=== PATIENT | male | born 1955 | race Caucasian/White ===

== ENCOUNTER → 2017-08-07 | Outpatient (CLI) | payer MEDICARE | LOC: M RAD 10:55 | DX: Z01.818 Encounter for other preprocedural examination (principal); N18.6 End stage renal disease | CPT/HCPCS: G0365 ==

== ENCOUNTER 2017-09-01 08:41 | Day surgery (SDC) | payer MEDICARE ==
[2017-09-01] MEDS: NS 500 ML IV (09:30)
[2017-09-01 09:38] LABS: POTASSIUM SERUM 3.7 MEQ/L (3.5-5.1)
[2017-09-01] MEDS ORDERED: PROPOFOL 200 MG/20 ML VIAL As Ordered ×2 (09:52→11:05)
[2017-09-01] MEDS ORDERED: LIDOCAINE 2% INJ 100 MG/5 ML SDV (FOR ANES.) As Ordered (09:59)
[2017-09-01] MEDS ORDERED: fentaNYL 100 MCG/2 ML INJECTION (J3010) As Ordered (10:02)
[2017-09-01] MEDS ORDERED: MIDAZOLAM INJ 2 MG/2 ML VIAL (J2250) As Ordered (10:02)
[2017-09-01] MEDS: HEPARIN SOD (PORCINE) 5000 UNITS/ML VIAL As Ordered (11:03)
[2017-09-01 11:44] LABS: BEDSIDE GLUCOSE 190 MG/DL (80-115)
[2017-09-01] MEDS: BUPIVACAINE HCL 0.5% 30 ML VIAL As Ordered (11:46)
[2017-09-01] MEDS: LIDOCAINE 1% SDV INJ 30 ML VIAL As Ordered (11:46)
[2017-09-01] MEDS ORDERED: fentaNYL 100 MCG/2 ML INJECTION (J3010) IV (12:15)
[2017-09-01] MEDS ORDERED: ONDANSETRON 4MG/2ML VIAL (J2405) IV (12:15)
[2017-09-01] MEDS ORDERED: LR 1,000 ML IV (12:15)
[2017-09-01 12:45] LABS: BEDSIDE GLUCOSE 164 MG/DL (80-115)
== END 2017-09-01 13:26 | disposition home or self-care (01) ==
LOC: M SDC 08:41
DX: N18.6 End stage renal disease (principal); I12.0 Hypertensive chronic kidney disease with stage 5 chronic kidney disease or end stage renal disease; I71.4 Abdominal aortic aneurysm, without rupture; E78.00 Pure hypercholesterolemia, unspecified; E10.22 Type 1 diabetes mellitus with diabetic chronic kidney disease; E10.21 Type 1 diabetes mellitus with diabetic nephropathy; F41.9 Anxiety disorder, unspecified; F32.9 Major depressive disorder, single episode, unspecified; F17.211 Nicotine dependence, cigarettes, in remission; I25.10 Atherosclerotic heart disease of native coronary artery without angina pectoris; E78.5 Hyperlipidemia, unspecified; D64.9 Anemia, unspecified; R29.898 Other symptoms and signs involving the musculoskeletal system; R06.83 Snoring; G47.33 Obstructive sleep apnea (adult) (pediatric); R60.0 Localized edema; E66.9 Obesity, unspecified; Z68.32 Body mass index [BMI] 32.0-32.9, adult; Z91.018 Allergy to other foods; Z79.899 Other long term (current) drug therapy; Z79.4 Long term (current) use of insulin; Z79.82 Long term (current) use of aspirin; Z85.828 Personal history of other malignant neoplasm of skin; Z95.5 Presence of coronary angioplasty implant and graft; Z86.718 Personal history of other venous thrombosis and embolism; Z99.2 Dependence on renal dialysis
CPT/HCPCS: 36821

== ENCOUNTER → 2017-09-10 | Outpatient (CLI) | payer MEDICARE ==
[~2017-09-10] MED LIST: ISOVUE-300 61% 50ML VIAL (Q9967) As Ordered; LIDOCAINE 2% MDV 20 ML VIAL As Ordered; MIDAZOLAM INJ 2 MG/2 ML VIAL (J2250) As Ordered; fentaNYL 100 MCG/2 ML INJECTION (J3010) As Ordered
== END | disposition home or self-care (01) ==
LOC: M IRPRO 06:36
DX: T82.590A Other mechanical complication of surgically created arteriovenous fistula, initial encounter (principal); N18.6 End stage renal disease
CPT/HCPCS: 36901

== ENCOUNTER → 2017-09-22 | Outpatient (CLI) | payer MEDICARE ==
[~2017-09-22] MED LIST changes: -MIDAZOLAM INJ 2 MG/2 ML VIAL (J2250) As Ordered; -fentaNYL 100 MCG/2 ML INJECTION (J3010) As Ordered
== END | disposition home or self-care (01) ==
LOC: M IRPRO 07:36
DX: T82.858A Stenosis of other vascular prosthetic devices, implants and grafts, initial encounter (principal); E11.22 Type 2 diabetes mellitus with diabetic chronic kidney disease; I12.0 Hypertensive chronic kidney disease with stage 5 chronic kidney disease or end stage renal disease; N18.6 End stage renal disease; I71.4 Abdominal aortic aneurysm, without rupture; E78.00 Pure hypercholesterolemia, unspecified
CPT/HCPCS: 36902

== ENCOUNTER → 2017-11-12 | Outpatient (CLI) | payer MEDICARE ==
[~2017-11-12] MED LIST changes: -LIDOCAINE 2% MDV 20 ML VIAL As Ordered; +MIDAZOLAM INJ 2 MG/2 ML VIAL (J2250) As Ordered; +fentaNYL 100 MCG/2 ML INJECTION (J3010) As Ordered
== END | disposition home or self-care (01) ==
LOC: M IRPRO 08:14
DX: T82.858A Stenosis of other vascular prosthetic devices, implants and grafts, initial encounter (principal); N18.6 End stage renal disease; I25.10 Atherosclerotic heart disease of native coronary artery without angina pectoris; E11.9 Type 2 diabetes mellitus without complications; I71.4 Abdominal aortic aneurysm, without rupture; I12.0 Hypertensive chronic kidney disease with stage 5 chronic kidney disease or end stage renal disease; E78.00 Pure hypercholesterolemia, unspecified
CPT/HCPCS: 36902

== ENCOUNTER → 2018-12-09 | Outpatient (CLI) | payer MEDICARE ==
[~2018-12-09] MED LIST changes: +AMLO5TAB6 PO; +ASPI-255 PO; +ATOR80TA59 PO; +BUPIVACAINE HCL 0.5% 10 ML VIAL As Ordered ONE; +CARV25TA PO; +CLOP75TA2 PO; +FLOM0.4C39 PO; +INSUH10VL SC; +INSULADS INJ; -ISOVUE-300 61% 50ML VIAL (Q9967) As Ordered; +ISOVUE-300 61% 50ML VIAL (Q9967) As Ordered ONE; +LASI20TA3 PO; +LIDOCAINE 2% MDV 20 ML VIAL As Ordered ONE; +LISI10TA4 PO; -MIDAZOLAM INJ 2 MG/2 ML VIAL (J2250) As Ordered; +MIDAZOLAM INJ 2 MG/2 ML VIAL (J2250) As Ordered ONE; +TRAZ-252 PO; +VENL150C43 PO; +VITA50005 PO; -fentaNYL 100 MCG/2 ML INJECTION (J3010) As Ordered; +fentaNYL 100 MCG/2 ML INJECTION (J3010) As Ordered ONE
--- NOTE | 2019-01-12 13:12 | REPIR ---
DATE OF PROCEDURE: 12/09/2018 ATTENDING SURGEON: Dr. Carlene Andrade LAMINATING PRESS OPERATOR: Francheska Rizzo and Ervin Samuel PREOPERATIVE DIAGNOSIS: End-stage renal disease, dysfunctional left radiocephalic arteriovenous fistula. POSTOPERATIVE DIAGNOSIS: End-stage renal disease, dysfunctional left radiocephalic arteriovenous fistula. PROCEDURE: Left radiocephalic arteriovenous venous fistulogram, retrograde left radial artery angiogram. INDICATION: The patient is a 63-year-old male with end-stage renal disease and a dysfunctional left radiocephalic arteriovenous fistula. The patient undergo a fistulogram with possible angioplasty stent and/or atherectomy. ANESTHESIA: Was local with 2 mL of 2% lidocaine mixed 0.5% Marcaine. FLUORO TIME: 0.1 minutes. CONTRAST: 1 mL. HEPARIN: None. COMPLICATIONS: None. DRAINS: None. SPECIMENS: None. IMPLANTS: None. PROCEDURE: The patient was taken to the angiography suite, placed supine on the angiography room table and then prepped and draped in a standard surgical fashion. Left radiocephalic arteriovenous fistula was cannulated and a fistulogram and retrograde radial artery angiogram were performed showing no intervention required. The catheter was removed and manual compression applied at the puncture site for hemostasis. Dressings were then applied. The patient tolerated the procedure well. All instruments, sponges and needle counts were correct at the end the case. There were no complications. Dr. Andrade was present for directed the entire case. The patient was transferred to the holding area and subsequently discharged in stable condition.
== END ==
LOC: M IRPRO 12-02 09:43
PROVIDERS: ATTEND Surgery Vascular Surgery
DX: N18.6 End stage renal disease (principal); T82.598A Other mechanical complication of other cardiac and vascular devices and implants, initial encounter; X58.XXXA Exposure to other specified factors, initial encounter; Y93.9 Activity, unspecified; Y92.9 Unspecified place or not applicable; Y99.9 Unspecified external cause status
CPT/HCPCS: 36901; C1894; Q9967

== ENCOUNTER 2022-08-31 18:00 | Emergency (ER) | payer MEDICARE ==
[~2022-08-31] VITALS: Ht 175.3 cm; Wt 104.5 kg
[~2022-08-31 18:00] MED LIST changes: +AMLO1TAB24 PO; -AMLO5TAB6 PO; -BUPIVACAINE HCL 0.5% 10 ML VIAL As Ordered ONE; -ISOVUE-300 61% 50ML VIAL (Q9967) As Ordered ONE; -LIDOCAINE 2% MDV 20 ML VIAL As Ordered ONE; +LISI10TA22 PO; -LISI10TA4 PO; -MIDAZOLAM INJ 2 MG/2 ML VIAL (J2250) As Ordered ONE; -fentaNYL 100 MCG/2 ML INJECTION (J3010) As Ordered ONE
[2022-08-31] MEDS ORDERED: BENZONATATE 100MG CAPSULE PO ONE (18:40)
[2022-08-31 18:49] LABS: BASO % 0.5 % (0.0-1.0); EOS # 0.2 10^3/uL (0.0-0.5); EOS % 1.9 % (0.0-3.0); HEMATOCRIT 29.9 % (42.0-52.0); HEMOGLOBIN 9.5 g/dl (13.5-17.5); LYMPH # 0.5 10^3/uL (1.5-5.0); LYMPH % 5.8 % (24.0-44.0); MEAN CORPUSCULAR HEMOGLOBIN 29.5 pg (27.0-33.0); MEAN CORPUSCULAR HGB CONC 31.8 g/dl (32.0-36.5); MEAN CORPUSCULAR VOLUME 92.9 fl (80.0-96.0); MONO # 0.9 10^3/uL (0.0-0.8); MONO % 11.1 % (2.0-8.0); NEUTROPHILS # 6.5 10^3/uL (1.5-8.5); NEUTROPHILS % 80.5 % (36.0-66.0); PLATELET COUNT, AUTOMATED 269 10^3/uL (150-450); RED BLOOD COUNT 3.22 10^6/uL (4.30-6.10); WHITE BLOOD COUNT 8.1 10^3/uL (4.0-10.0)
[2022-08-31 19:14] LABS: BILIRUBIN,DIRECT 0.2 MG/DL (<0.4); BILIRUBIN,TOTAL 0.4 MG/DL (0.3-1.2); CALCIUM LEVEL 8.8 MG/DL (8.3-10.6); CREATININE FOR GFR 6.63 MG/DL (0.70-1.30); GLOMERULAR FILTRATION RATE 8.9 (>49); POTASSIUM SERUM 3.9 MMOL/L (3.5-5.1); TOTAL PROTEIN 6.6 G/DL (5.7-8.2)
[2022-08-31] MEDS ORDERED: ONDA4TAB6 PO (19:59)
[2022-08-31 21:45] VITALS: BP 147/78
== END 2022-08-31 22:26 | disposition home or self-care (01) ==
LOC: EDBD 18:00 → M ED 18:44
DX: U07.1 COVID-19 (principal); E11.9 Type 2 diabetes mellitus without complications; I25.10 Atherosclerotic heart disease of native coronary artery without angina pectoris; I10 Essential (primary) hypertension; G47.33 Obstructive sleep apnea (adult) (pediatric); E78.5 Hyperlipidemia, unspecified; F03.90 Unspecified dementia, unspecified severity, without behavioral disturbance, psychotic disturbance, mood disturbance, and anxiety; N18.6 End stage renal disease; Z99.2 Dependence on renal dialysis; Z83.3 Family history of diabetes mellitus; Z82.49 Family history of ischemic heart disease and other diseases of the circulatory system; Z79.82 Long term (current) use of aspirin; Z79.4 Long term (current) use of insulin; Z79.899 Other long term (current) drug therapy; Z91.018 Allergy to other foods

== ENCOUNTER 2022-09-08 20:44 | Inpatient (IN) | payer MEDICARE ==
[~2022-09-08] VITALS: Ht 175.3 cm; Wt 105.1 kg
[~2022-09-08 20:44] MED LIST changes: +ONDA4TAB6 PO
[2022-09-08 22:00] VITALS: BP 185/101
[2022-09-08] MEDS ORDERED: CARVedilol 12.5 MG TAB PO ONE (22:10)
[2022-09-08] MEDS ORDERED: ALBUTEROL SULFATE 2.5MG/0.5ML INH NEB SOLN NEB PRN (22:10)
[2022-09-08] MEDS ORDERED: GLUCOSE 4GM CHEW TABLET PO PRN (22:10)
[2022-09-08] MEDS ORDERED: DEXTROSE 50% 50ML SYRINGE IV PRN (22:10)
[2022-09-08] MEDS ORDERED: GLUCAGON INJ 1MG VIAL SC PRN (22:10)
[2022-09-08] MEDS ORDERED: ACETAMINOPHEN TAB 650MG DOSE (2X325MG) PO PRN (22:10)
[2022-09-08 22:15] VITALS: BP 181/109
[2022-09-08 22:20] VITALS: BP 152/96
[2022-09-08] MEDS: INSULIN LISPRO (NovoLOG) PER UNIT SC SCH (22:45)
[2022-09-08 23:15] VITALS: BP 178/103
[2022-09-09] VITALS: BP 157/94
[2022-09-09 00:18] LABS: CALCIUM LEVEL 8.6 MG/DL (8.3-10.6); CREATININE FOR GFR 7.09 MG/DL (0.70-1.30); GLOMERULAR FILTRATION RATE 8.2 (>49); MAGNESIUM LEVEL 1.9 MG/DL (1.8-2.4); PHOSPHORUS LEVEL 3.7 MG/DL (2.4-5.1); POTASSIUM SERUM 3.8 MMOL/L (3.5-5.1)
[2022-09-09] MEDS ORDERED: CARV12.5 PO (02:26)
[2022-09-09] MEDS ORDERED: FLON1SPR ×2 (02:26→07:01)
[2022-09-09] MEDS ORDERED: ALBU8.5H INH (02:26)
[2022-09-09] MEDS ORDERED: TRAZ-257 PO (02:26)
[2022-09-09] MEDS ORDERED: TRES100I SC (02:26)
[2022-09-09] MEDS ORDERED: ROPI0.253 PO (02:26)
[2022-09-09] MEDS ORDERED: FLUO40CA PO (02:26)
[2022-09-09] MEDS ORDERED: CEFU1TAB20 PO (02:26)
[2022-09-09] MEDS ORDERED: VALS1TAB67 PO (02:26)
[2022-09-09] MEDS: IPRATROPIUM 0.5MG/ALBUTEROL 2.5MG INH SOL UD 3ML (DUONEB) NEB SCH ×4 (02:33→19:51)
[2022-09-09] MEDS ORDERED: traZODone 50 MG TAB PO ONE (03:00)
[2022-09-09 04:00] VITALS: BP 165/70
[2022-09-09 04:38] LABS: HEMATOCRIT 26.6 % (42.0-52.0); HEMOGLOBIN 8.6 g/dl (13.5-17.5); MEAN CORPUSCULAR HEMOGLOBIN 29.5 pg (27.0-33.0); MEAN CORPUSCULAR HGB CONC 32.3 g/dl (32.0-36.5); MEAN CORPUSCULAR VOLUME 91.1 fl (80.0-96.0); PLATELET COUNT, AUTOMATED 290 10^3/uL (150-450); RED BLOOD COUNT 2.92 10^6/uL (4.30-6.10); WHITE BLOOD COUNT 7.6 10^3/uL (4.0-10.0)
[2022-09-09 05:14] LABS: BLOOD UREA NITROGEN 35 MG/DL (9-23); CALCIUM LEVEL 8.5 MG/DL (8.3-10.6); CARBON DIOXIDE LEVEL 29 MMOL/L (20-31); CHLORIDE LEVEL 97 MMOL/L (98-107); CREATININE FOR GFR 7.26 MG/DL (0.70-1.30); GLUCOSE, FASTING 99 MG/DL (74-106); MAGNESIUM LEVEL 1.9 MG/DL (1.8-2.4); POTASSIUM SERUM 3.6 MMOL/L (3.5-5.1); SODIUM LEVEL 136 MMOL/L (136-145)
[2022-09-09] MEDS ORDERED: HEPARIN SOD (PORCINE) 5000UNITS/ML 1ML VIAL/SYRINGE SC SCH (06:00)
[2022-09-09] MEDS ORDERED: TORS20TA2 PO (07:01)
[2022-09-09] MEDS ORDERED: ROCA0.5C PO (07:01)
[2022-09-09] MEDS ORDERED: VANC1.5P10 IV (07:04)
[2022-09-09] MEDS ORDERED: VITMTA PO (07:04)
[2022-09-09] MEDS ORDERED: ELIQ5TAB PO (07:04)
[2022-09-09] MEDS ORDERED: TUMS500C PO (07:04)
[2022-09-09] MEDS ORDERED: COLA100C5 PO (07:04)
[2022-09-09] MEDS ORDERED: HOME MED LIST COMPLETE! XX SCH (07:05)
[2022-09-09] MEDS ORDERED: SODIUM CHLORIDE 0.9% 1000ML IV PRN (07:10)
[2022-09-09] MEDS ORDERED: HEPARIN 1,000UNITS/ML 10ML VIAL (FOR RADIOLOGY & DIALYSIS ONLY) IV PRN (07:10)
[2022-09-09] MEDS ORDERED: HEPARIN 1,000UNITS/ML 10ML VIAL (FOR RADIOLOGY & DIALYSIS ONLY) XX SCH (07:10)
[2022-09-09] MEDS ORDERED: LIDOCAINE 1% SDV 5ML VIAL SC PRN (07:10)
[2022-09-09] MEDS: INSULIN LISPRO (NovoLOG) PER UNIT SC SCH ×4 (07:30→20:45)
[2022-09-09 08:00] VITALS: BP 141/64
[2022-09-09] MEDS: LEVEMIR (INSULIN DETEMIR) 1 UNITS/0.01ML SC SCH (08:00)
[2022-09-09 08:40] LABS: HEPATITIS B SURFACE ANTIBODY NEGATIVE (POSITIVE)
[2022-09-09 08:52] LABS: HEPATITIS B SURFACE ANTIGEN NEGATIVE (NEGATIVE)
[2022-09-09] MEDS ORDERED: LEVEMIR (INSULIN DETEMIR) 1 UNITS/0.01ML SC SCH (09:00)
[2022-09-09 09:12] LABS: HEPATITIS B CORE ANTIBODY IGM NEGATIVE (NEGATIVE)
[2022-09-09] MEDS ORDERED: CALCIUM CARBONATE 500 MG CHEW U/D PO PRN (12:35)
[2022-09-09 12:58] VITALS: BP 151/76
[2022-09-09] MEDS: CLOPIDOGREL 75 MG TAB PO SCH (13:34)
[2022-09-09] MEDS: VALSARTAN 80 MG TAB (DIOVAN) PO SCH (14:34)
[2022-09-09] MEDS ORDERED: rOPINIRole 0.25 MG TAB(REQUIP) PO ONE (15:00)
[2022-09-09 16:00] VITALS: BP 140/90
[2022-09-09] MEDS ORDERED: CEFUROXIME 500 MG TAB PO ONE (16:00)
[2022-09-09 20:00] VITALS: BP 159/73
[2022-09-09] MEDS: TORSEMIDE 20 MG TAB PO SCH (20:45)
[2022-09-09] MEDS: CARVedilol 12.5 MG TAB PO SCH (20:45)
[2022-09-09] MEDS: APIXABAN 5 MG TAB (ELIQUIS) PO SCH (20:45)
[2022-09-09] MEDS ORDERED: ATORVASTATIN 20 MG TAB PO SCH (21:00)
[2022-09-09] MEDS ORDERED: traZODone 100 MG TAB PO SCH (21:00)
[2022-09-09] MEDS ORDERED: rOPINIRole 0.25 MG TAB(REQUIP) PO SCH (21:00)
[2022-09-09] MEDS ORDERED: FLUoxetine 20MG CAP PO SCH (21:00)
[2022-09-09] MEDS ORDERED: FLUTICASONE PROP 0.05% NASAL SPRAY 16 GM (FLONASE) SCH (21:00)
[2022-09-09] MEDS ORDERED: CALCITRIOL 0.25 MCG CAP (S0169) PO SCH (21:00)
[2022-09-09] MEDS ORDERED: DOCUSATE SODIUM 100MG CAPSULE PO SCH (21:00)
[2022-09-10 00:10] VITALS: BP 124/65
[2022-09-10 04:23] LABS: BASO % 0.4 % (0.0-1.0); EOS # 0.2 10^3/uL (0.0-0.5); EOS % 3.3 % (0.0-3.0); HEMATOCRIT 26.4 % (42.0-52.0); HEMOGLOBIN 8.4 g/dl (13.5-17.5); MEAN CORPUSCULAR HGB CONC 31.8 g/dl (32.0-36.5); MONO % 14.5 % (2.0-8.0); NEUTROPHILS # 4.4 10^3/uL (1.5-8.5); NEUTROPHILS % 66.4 % (36.0-66.0); PLATELET COUNT, AUTOMATED 271 10^3/uL (150-450); WHITE BLOOD COUNT 6.7 10^3/uL (4.0-10.0)
[2022-09-10 04:53] VITALS: BP 130/70
[2022-09-10 04:53] LABS: CALCIUM LEVEL 8.4 MG/DL (8.3-10.6); CREATININE FOR GFR 5.24 MG/DL (0.70-1.30); GLOMERULAR FILTRATION RATE 11.7 (>49); POTASSIUM SERUM 4.6 MMOL/L (3.5-5.1)
[2022-09-10] MEDS ORDERED: SODIUM CHLORIDE 0.9% 1000ML IV PRN (06:55)
[2022-09-10] MEDS ORDERED: LIDOCAINE 1% SDV 5ML VIAL SC PRN (06:55)
[2022-09-10] MEDS ORDERED: HEPARIN 1,000UNITS/ML 10ML VIAL (FOR RADIOLOGY & DIALYSIS ONLY) XX SCH (06:55)
[2022-09-10] MEDS ORDERED: HEPARIN 1,000UNITS/ML 10ML VIAL (FOR RADIOLOGY & DIALYSIS ONLY) IV PRN (06:55)
[2022-09-10 07:30] VITALS: BP 148/83
[2022-09-10] MEDS: INSULIN LISPRO (NovoLOG) PER UNIT SC SCH ×2 (07:30→12:00)
[2022-09-10 12:51] VITALS: BP 159/82
[2022-09-10 12:53] VITALS: BP 159/82
[2022-09-10] MEDS: APIXABAN 5 MG TAB (ELIQUIS) PO SCH (12:53)
[2022-09-10] MEDS: CLOPIDOGREL 75 MG TAB PO SCH (12:53)
[2022-09-10] MEDS: CARVedilol 12.5 MG TAB PO SCH (12:53)
[2022-09-10] MEDS: TORSEMIDE 20 MG TAB PO SCH (12:54)
[2022-09-10] MEDS: VALSARTAN 80 MG TAB (DIOVAN) PO SCH (12:54)
[2022-09-10] MEDS: LEVEMIR (INSULIN DETEMIR) 1 UNITS/0.01ML SC SCH (12:56)
[2022-09-10] MEDS ORDERED: CEFUROXIME 500 MG TAB PO SCH (16:00)
== END 2022-09-10 14:15 | disposition home or self-care (01) | DRG 291 ==
LOC: M ED INP 22:10 → M ICU 22:11
PROVIDERS: ADMIT Internal Medicine; ATTEND Internal Medicine
PROC: 5A1D70Z Performance of Urinary Filtration, Intermittent, Less than 6 Hours Per Day (ICD-10-PCS; principal; 2022-09-09)
DX: I13.2 Hypertensive heart and chronic kidney disease with heart failure and with stage 5 chronic kidney disease, or end stage renal disease (principal); N18.6 End stage renal disease; U07.1 COVID-19; J81.0 Acute pulmonary edema; Z99.2 Dependence on renal dialysis; E11.22 Type 2 diabetes mellitus with diabetic chronic kidney disease; I50.9 Heart failure, unspecified; E87.70 Fluid overload, unspecified; I25.10 Atherosclerotic heart disease of native coronary artery without angina pectoris; Z87.891 Personal history of nicotine dependence; D63.1 Anemia in chronic kidney disease; E66.9 Obesity, unspecified; G25.81 Restless legs syndrome; G47.33 Obstructive sleep apnea (adult) (pediatric); E11.65 Type 2 diabetes mellitus with hyperglycemia; I48.91 Unspecified atrial fibrillation; G47.00 Insomnia, unspecified; E78.00 Pure hypercholesterolemia, unspecified; F32.A Depression, unspecified; Z79.82 Long term (current) use of aspirin; Z79.4 Long term (current) use of insulin; Z79.899 Other long term (current) drug therapy; Z91.018 Allergy to other foods

== ENCOUNTER 2023-01-25 13:51 | Inpatient (IN) | payer MEDICARE ==
[~2023-01-25] VITALS: Ht 175.3 cm; Wt 100.8 kg
[~2023-01-25 13:51] MED LIST changes: +ALBU8.5H INH; +CARV12.5 PO; +CEFU1TAB20 PO; +COLA100C5 PO; +ELIQ5TAB PO; +FLON1SPR; +FLUO40CA PO; +ROCA0.5C PO; +ROPI5TAB19 PO; +TORS20TA2 PO; +TRAZ-257 PO; +TRES100I SC; +TUMS500C PO; +VALS1TAB67 PO; +VANC1.5P10 IV; +VITMTA PO
[2023-01-25 14:53] LABS: VENOUS HCO3 29.9 MMOL/L (23.0-27.0); VENOUS O2 SATURATION 57.1 % (60.0-80.0); VENOUS PARTIAL PRESSURE CO2 50.7 mmHg (38.0-50.0); VENOUS PARTIAL PRESSURE O2 32.5 mmHg (30.0-50.0); VENOUS PH 7.388 UNITS (7.330-7.430); VENOUS STANDARD HCO3 27.2 MMOL/L; VENOUS TOTAL CO2 31.4 MMOL/L (24.0-28.0)
[2023-01-25 14:58] LABS: BASO # 0.1 10^3/uL (0.0-0.2); BASO % 0.4 % (0.0-1.0); EOS # 0.1 10^3/uL (0.0-0.5); HEMATOCRIT 33.8 % (42.0-52.0); HEMOGLOBIN 10.9 g/dl (13.5-17.5); LYMPH # 0.9 10^3/uL (1.5-5.0); LYMPH % 7.4 % (24.0-44.0); MEAN CORPUSCULAR HEMOGLOBIN 28.2 pg (27.0-33.0); MEAN CORPUSCULAR HGB CONC 32.2 g/dl (32.0-36.5); MEAN CORPUSCULAR VOLUME 87.3 fl (80.0-96.0); MONO # 0.9 10^3/uL (0.0-0.8); MONO % 7.5 % (2.0-8.0); NEUTROPHILS # 9.6 10^3/uL (1.5-8.5); NEUTROPHILS % 83.4 % (36.0-66.0); PLATELET COUNT, AUTOMATED 297 10^3/uL (150-450); RED BLOOD COUNT 3.87 10^6/uL (4.30-6.10); WHITE BLOOD COUNT 11.5 10^3/uL (4.0-10.0)
[2023-01-25 15:09] LABS: INR 1.27; PROTHROMBIN TIME 16.2 SECONDS (12.5-14.5)
[2023-01-25 15:23] LABS: ALBUMIN 3.7 G/DL (3.2-5.2); BILIRUBIN,DIRECT 0.4 MG/DL (<0.4); BILIRUBIN,TOTAL 0.9 MG/DL (0.3-1.2); CALCIUM LEVEL 10.3 MG/DL (8.3-10.6); CK-MB VALUE MASS 2.8 NG/ML (<3.6); CREATININE FOR GFR 7.04 MG/DL (0.70-1.30); GLOMERULAR FILTRATION RATE 8.3 (>49); MB/CK RELATIVE INDEX 1.6 (< OR =4); POTASSIUM SERUM 4.2 MMOL/L (3.5-5.1); TOTAL PROTEIN 7.7 G/DL (5.7-8.2)
[2023-01-25 15:25] LABS: THYROID STIMULATING HORMONE 4.179 uIU/ML (0.55-4.78)
[2023-01-25 16:10] LABS: MAGNESIUM LEVEL 2.3 MG/DL (1.8-2.4)
[2023-01-25] MEDS ORDERED: hydrALAZINE 20MG/ML 1ML VIAL IV STA (16:25)
[2023-01-25] MEDS ORDERED: CARVedilol 12.5 MG TAB PO ONE (16:30)
[2023-01-25 16:41] LABS: CK-MB VALUE MASS 2.3 NG/ML (<3.6); MB/CK RELATIVE INDEX 1.35 (< OR =4)
[2023-01-25] MEDS ORDERED: FUROSEMIDE 100MG/10ML VIAL IV ONE (17:40)
[2023-01-25] MEDS ORDERED: GLUCOSE 4GM CHEW TABLET PO PRN (18:05)
[2023-01-25] MEDS ORDERED: DEXTROSE 50% 50ML SYRINGE IV PRN (18:05)
[2023-01-25] MEDS ORDERED: GLUCAGON INJ 1MG VIAL SC PRN (18:05)
[2023-01-25] MEDS ORDERED: ADVI200C8 PO (19:55)
[2023-01-25] MEDS ORDERED: TAMS1CAP17 PO (19:55)
[2023-01-25] MEDS ORDERED: CARV25TA PO (19:55)
[2023-01-25] MEDS ORDERED: VALS1TAB66 PO (19:55)
[2023-01-25] MEDS ORDERED: HOME MED LIST COMPLETE! XX SCH (20:00)
[2023-01-25] MEDS ORDERED: ALBUTEROL 90 MCG/ACT 8GM HFA INHALER INH PRN (20:10)
[2023-01-25] MEDS ORDERED: CARVedilol 12.5 MG TAB PO SCH (21:00)
[2023-01-25] MEDS: INSULIN LISPRO (NovoLOG) PER UNIT SC SCH (21:00)
[2023-01-25] MEDS ORDERED: LEVEMIR (INSULIN DETEMIR) 1 UNITS/0.01ML SC SCH (21:00)
[2023-01-25 21:35] VITALS: BP 168/88; TEMP 96.6; O2SAT 97
[2023-01-25 21:40] VITALS: O2SAT 97
[2023-01-25] MEDS: DOCUSATE SODIUM 100MG CAPSULE PO SCH (21:58)
[2023-01-25] MEDS: FLUoxetine 20MG CAP PO SCH (21:58)
[2023-01-25] MEDS: traZODone 100 MG TAB PO SCH (21:58)
[2023-01-25] MEDS: ATORVASTATIN 20 MG TAB PO SCH (21:58)
[2023-01-25] MEDS: FLUTICASONE PROP 0.05% NASAL SPRAY 16 GM (FLONASE) SCH (22:26)
[2023-01-25] MEDS: rOPINIRole 0.25 MG TAB(REQUIP) PO SCH (22:26)
[2023-01-25 22:30] VITALS: O2SAT 94
[2023-01-25 23:00] VITALS: O2SAT 93
[2023-01-25] MEDS: ACETAMINOPHEN TAB 650MG DOSE (2X325MG) PO PRN (23:47)
[2023-01-26] VITALS (14 sets, daily range): BP systolic 136–164; BP diastolic 76–102; TEMP 97.3–97.9; O2SAT 91–97
[2023-01-26 05:08] LABS: HEMATOCRIT 29.2 % (42.0-52.0); HEMOGLOBIN 9.4 g/dl (13.5-17.5); MEAN CORPUSCULAR HEMOGLOBIN 27.9 pg (27.0-33.0); MEAN CORPUSCULAR HGB CONC 32.2 g/dl (32.0-36.5); MEAN CORPUSCULAR VOLUME 86.6 fl (80.0-96.0); PLATELET COUNT, AUTOMATED 226 10^3/uL (150-450); RED BLOOD COUNT 3.37 10^6/uL (4.30-6.10); WHITE BLOOD COUNT 8.4 10^3/uL (4.0-10.0)
[2023-01-26 05:36] LABS: CALCIUM LEVEL 9.3 MG/DL (8.3-10.6); CREATININE FOR GFR 7.81 MG/DL (0.70-1.30); GLOMERULAR FILTRATION RATE 7.4 (>49); MAGNESIUM LEVEL 2.2 MG/DL (1.8-2.4); PHOSPHORUS LEVEL 5.5 MG/DL (2.4-5.1); POTASSIUM SERUM 4.1 MMOL/L (3.5-5.1)
[2023-01-26] MEDS: INSULIN LISPRO (NovoLOG) PER UNIT SC SCH ×4 (07:30→21:00)
[2023-01-26] MEDS: VALSARTAN 80 MG TAB (DIOVAN) PO SCH (08:07)
[2023-01-26] MEDS: TAMSULOSIN 0.4 MG CAP PO SCH (08:07)
[2023-01-26] MEDS: CLOPIDOGREL 75 MG TAB PO SCH (08:08)
[2023-01-26] MEDS: CARVedilol 12.5 MG TAB PO SCH ×2 (08:08→21:00)
[2023-01-26] MEDS: rOPINIRole 0.25 MG TAB(REQUIP) PO SCH ×2 (08:08→20:57)
[2023-01-26] MEDS ORDERED: APIXABAN 5 MG TAB (ELIQUIS) PO SCH (09:00)
[2023-01-26] MEDS ORDERED: TORSEMIDE 20 MG TAB PO SCH (09:00)
[2023-01-26] MEDS ORDERED: HEPARIN 1,000UNITS/ML 10ML VIAL (FOR RADIOLOGY & DIALYSIS ONLY) IV PRN (09:05)
[2023-01-26] MEDS ORDERED: HEPARIN 1,000UNITS/ML 10ML VIAL (FOR RADIOLOGY & DIALYSIS ONLY) XX SCH (09:05)
[2023-01-26] MEDS ORDERED: SODIUM CHLORIDE 0.9% 1000ML IV PRN (09:05)
[2023-01-26] MEDS ORDERED: LIDOCAINE 1% SDV 5ML VIAL SC PRN (09:05)
[2023-01-26] MEDS: ACETAMINOPHEN TAB 650MG DOSE (2X325MG) PO PRN ×2 (10:35→23:21)
[2023-01-26] MEDS: FLUoxetine 20MG CAP PO SCH (20:56)
[2023-01-26] MEDS: ATORVASTATIN 20 MG TAB PO SCH (20:56)
[2023-01-26] MEDS: traZODone 100 MG TAB PO SCH (20:57)
[2023-01-26] MEDS: APIXABAN 5 MG TAB (ELIQUIS) PO SCH (20:57)
[2023-01-26] MEDS: DOCUSATE SODIUM 100MG CAPSULE PO SCH (20:57)
[2023-01-26] MEDS: FLUTICASONE PROP 0.05% NASAL SPRAY 16 GM (FLONASE) SCH (20:59)
[2023-01-26] MEDS ORDERED: LEVEMIR (INSULIN DETEMIR) 1 UNITS/0.01ML SC SCH (21:00)
[2023-01-27 03:55] VITALS: BP 145/90; TEMP 97.8; O2SAT 98
[2023-01-27] MEDS ORDERED: HEPARIN 1,000UNITS/ML 10ML VIAL (FOR RADIOLOGY & DIALYSIS ONLY) IV PRN (06:00)
[2023-01-27] MEDS ORDERED: HEPARIN 1,000UNITS/ML 10ML VIAL (FOR RADIOLOGY & DIALYSIS ONLY) XX SCH (06:00)
[2023-01-27] MEDS ORDERED: SODIUM CHLORIDE 0.9% 1000ML IV PRN (06:00)
[2023-01-27] MEDS ORDERED: LIDOCAINE 1% SDV 5ML VIAL SC PRN (06:00)
[2023-01-27 06:23] LABS: BASO % 0.5 % (0.0-1.0); EOS # 0.1 10^3/uL (0.0-0.5); EOS % 1.9 % (0.0-3.0); HEMATOCRIT 30.8 % (42.0-52.0); HEMOGLOBIN 10.1 g/dl (13.5-17.5); LYMPH # 0.9 10^3/uL (1.5-5.0); LYMPH % 11.7 % (24.0-44.0); MEAN CORPUSCULAR HEMOGLOBIN 28.5 pg (27.0-33.0); MEAN CORPUSCULAR HGB CONC 32.8 g/dl (32.0-36.5); MONO % 13.3 % (2.0-8.0); NEUTROPHILS # 5.3 10^3/uL (1.5-8.5); NEUTROPHILS % 72.3 % (36.0-66.0); PLATELET COUNT, AUTOMATED 246 10^3/uL (150-450); RED BLOOD COUNT 3.54 10^6/uL (4.30-6.10); WHITE BLOOD COUNT 7.4 10^3/uL (4.0-10.0)
[2023-01-27 06:46] LABS: CREATININE FOR GFR 5.83 MG/DL (0.70-1.30); GLOMERULAR FILTRATION RATE 10.3 (>49); POTASSIUM SERUM 3.8 MMOL/L (3.5-5.1)
[2023-01-27] MEDS: INSULIN LISPRO (NovoLOG) PER UNIT SC SCH ×2 (07:30→12:59)
[2023-01-27 07:33] VITALS: BP 151/72; TEMP 97.4; O2SAT 94
[2023-01-27] MEDS ORDERED: TORSEMIDE 100 MG TAB PO SCH (09:00)
[2023-01-27 11:26] VITALS: BP 142/79
[2023-01-27] MEDS: CARVedilol 12.5 MG TAB PO SCH (11:26)
[2023-01-27] MEDS: VALSARTAN 80 MG TAB (DIOVAN) PO SCH (11:26)
[2023-01-27] MEDS: APIXABAN 5 MG TAB (ELIQUIS) PO SCH (11:26)
[2023-01-27] MEDS: TAMSULOSIN 0.4 MG CAP PO SCH (11:26)
[2023-01-27] MEDS: rOPINIRole 0.25 MG TAB(REQUIP) PO SCH (11:27)
[2023-01-27] MEDS: CLOPIDOGREL 75 MG TAB PO SCH (11:27)
[2023-01-27 12:00] VITALS: BP 142/79; TEMP 97.1; O2SAT 96
[2023-01-27] MEDS ORDERED: INSUH10VL SC (12:30)
[2023-01-27] MEDS ORDERED: TORS100T PO (12:30)
[2023-01-27] MEDS ORDERED: ELIQ5TAB PO (12:30)
[2023-01-27] MEDS ORDERED: TRES100I SC (12:30)
[2023-01-27] MEDS ORDERED: MAGN400T2 PO (12:31)
[2023-01-27] MEDS ORDERED: LEVEMIR (INSULIN DETEMIR) 1 UNITS/0.01ML SC SCH (21:00)
== END 2023-01-27 14:31 | disposition home health service (06) | DRG 291 ==
LOC: M ED 13:51 → EDSEX 13:51 → EDBD 13:51 → M ED INP 17:33 → M PCU 21:30
PROVIDERS: ADMIT Internal Medicine; ATTEND Internal Medicine
DX: I13.2 Hypertensive heart and chronic kidney disease with heart failure and with stage 5 chronic kidney disease, or end stage renal disease (principal); I50.33 Acute on chronic diastolic (congestive) heart failure; N18.6 End stage renal disease; J96.01 Acute respiratory failure with hypoxia; Z99.2 Dependence on renal dialysis; I48.91 Unspecified atrial fibrillation; E11.22 Type 2 diabetes mellitus with diabetic chronic kidney disease; I25.10 Atherosclerotic heart disease of native coronary artery without angina pectoris; F32.A Depression, unspecified; G47.33 Obstructive sleep apnea (adult) (pediatric); E78.5 Hyperlipidemia, unspecified; I27.20 Pulmonary hypertension, unspecified; E87.70 Fluid overload, unspecified; I16.0 Hypertensive urgency; Z87.891 Personal history of nicotine dependence; Z95.5 Presence of coronary angioplasty implant and graft; D63.1 Anemia in chronic kidney disease; Z79.01 Long term (current) use of anticoagulants; Z79.4 Long term (current) use of insulin; Z79.899 Other long term (current) drug therapy; Z91.018 Allergy to other foods; Z86.16 Personal history of COVID-19

== ENCOUNTER 2023-08-09 19:49 | Inpatient (IN) | payer MEDICARE ==
[~2023-08-09] VITALS: Ht 175.3 cm; Wt 96.4 kg
[~2023-08-09 19:49] MED LIST changes: +ADVI200C8 PO; +MAGN400T2 PO; +PANT40TA29 PO; +TAMS1CAP17 PO; +TORS100T PO; +VALS1TAB66 PO
[2023-08-09 20:39] LABS: BASO # 0.1 10^3/uL (0.0-0.2); BASO % 0.5 % (0.0-1.0); EOS # 0.2 10^3/uL (0.0-0.5); EOS % 2.4 % (0.0-3.0); HEMATOCRIT 26.9 % (42.0-52.0); HEMOGLOBIN 8.7 g/dl (13.5-17.5); LYMPH # 0.9 10^3/uL (1.5-5.0); MEAN CORPUSCULAR HEMOGLOBIN 30.7 pg (27.0-33.0); MEAN CORPUSCULAR HGB CONC 32.3 g/dl (32.0-36.5); MEAN CORPUSCULAR VOLUME 95.1 fl (80.0-96.0); MONO # 0.9 10^3/uL (0.0-0.8); MONO % 8.9 % (2.0-8.0); NEUTROPHILS # 7.5 10^3/uL (1.5-8.5); NEUTROPHILS % 78.9 % (36.0-66.0); PLATELET COUNT, AUTOMATED 250 10^3/uL (150-450); RED BLOOD COUNT 2.83 10^6/uL (4.30-6.10); WHITE BLOOD COUNT 9.6 10^3/uL (4.0-10.0)
[2023-08-09 20:51] LABS: INR 1.76; PROTHROMBIN TIME 19.9 SECONDS (12.5-14.5)
[2023-08-09 20:52] LABS: PARTIAL THROMBOPLASTIN TIME 43.3 SECONDS (24.8-34.2)
[2023-08-09 21:04] LABS: CK-MB VALUE MASS 2.5 NG/ML (<3.6)
[2023-08-09 21:05] LABS: MB/CK RELATIVE INDEX 1.05 (< OR =4)
[2023-08-09 21:14] LABS: ALBUMIN 3.4 G/DL (3.2-5.2); BILIRUBIN,DIRECT 0.3 MG/DL (<0.4); BILIRUBIN,TOTAL 0.5 MG/DL (0.3-1.2); CALCIUM LEVEL 9.5 MG/DL (8.3-10.6); CREATININE FOR GFR 9.47 MG/DL (0.70-1.30); GLOMERULAR FILTRATION RATE 5.9 (>42); POTASSIUM SERUM 4.6 MMOL/L (3.5-5.1); TOTAL PROTEIN 6.8 G/DL (5.7-8.2)
[2023-08-09 23:34] LABS: CK-MB VALUE MASS 2.2 NG/ML (<3.6)
[2023-08-09 23:36] LABS: MB/CK RELATIVE INDEX 0.94 (< OR =4)
[2023-08-10] MEDS ORDERED: MULTTAB61 PO (00:25)
[2023-08-10] MEDS ORDERED: PANT40TA29 PO (00:25)
[2023-08-10] MEDS ORDERED: TRES1INJ2 SC (00:25)
[2023-08-10] MEDS ORDERED: INSUH10VL SC (00:25)
[2023-08-10] MEDS ORDERED: ZOLP5TAB PO (00:25)
[2023-08-10] MEDS ORDERED: HOME MED LIST COMPLETE! XX SCH (00:30)
[2023-08-10] MEDS: NS 500 ML IV ONE (00:36)
[2023-08-10] MEDS: cefTRIAXone SOD 1 GM in D5W MINI-BAG PLUS 50 ML IV SCH (00:44)
[2023-08-10] MEDS ORDERED: GLUCOSE 4GM CHEW TABLET PO PRN (00:45)
[2023-08-10] MEDS ORDERED: DEXTROSE 50% 50ML SYRINGE IV PRN (00:45)
[2023-08-10] MEDS ORDERED: GLUCAGON INJ 1MG VIAL SC PRN (00:45)
[2023-08-10] MEDS: ACETAMINOPHEN *IV* 1,000 MG in IV 1 EA IV ONE (01:21)
[2023-08-10] MEDS: INSULIN LISPRO (NovoLOG) PER UNIT SC SCH ×3 (01:38→20:30)
[2023-08-10 03:45] VITALS: BP 137/93; TEMP 96.7; O2SAT 94
[2023-08-10 05:55] LABS: HEMATOCRIT 25.3 % (42.0-52.0); HEMOGLOBIN 8.2 g/dl (13.5-17.5); MEAN CORPUSCULAR HEMOGLOBIN 30.8 pg (27.0-33.0); MEAN CORPUSCULAR HGB CONC 32.4 g/dl (32.0-36.5); MEAN CORPUSCULAR VOLUME 95.1 fl (80.0-96.0); PLATELET COUNT, AUTOMATED 208 10^3/uL (150-450); RED BLOOD COUNT 2.66 10^6/uL (4.30-6.10); WHITE BLOOD COUNT 8.1 10^3/uL (4.0-10.0)
[2023-08-10 06:29] LABS: CALCIUM LEVEL 9.2 MG/DL (8.3-10.6); CREATININE FOR GFR 10.14 MG/DL (0.70-1.30); GLOMERULAR FILTRATION RATE 5.4 (>42); POTASSIUM SERUM 4.4 MMOL/L (3.5-5.1)
[2023-08-10] MEDS: TAMSULOSIN 0.4 MG CAP PO SCH (08:16)
[2023-08-10] MEDS ORDERED: LIDOCAINE 1% SDV 5ML VIAL SC PRN (08:30)
[2023-08-10] MEDS ORDERED: HEPARIN 1,000UNITS/ML 10ML VIAL (FOR RADIOLOGY & DIALYSIS ONLY) IV PRN (08:30)
[2023-08-10] MEDS ORDERED: HEPARIN 1,000UNITS/ML 10ML VIAL (FOR RADIOLOGY & DIALYSIS ONLY) XX SCH (08:30)
[2023-08-10] MEDS ORDERED: SODIUM CHLORIDE 0.9% 1000ML IV PRN (08:30)
[2023-08-10 08:37] VITALS: BP 127/64; TEMP 96.7; O2SAT 96
[2023-08-10] MEDS: LEVEMIR (INSULIN DETEMIR) 1 UNITS/0.01ML SC SCH (08:58)
[2023-08-10] MEDS ORDERED: ONDANSETRON 4MG TAB PO PRN (09:00)
[2023-08-10] MEDS: LIDOCAINE 5% (LIDODERM) PATCH TD SCH (09:00)
[2023-08-10] MEDS ORDERED: ALBUTEROL 90 MCG/ACT 8GM HFA INHALER INH PRN (09:40)
[2023-08-10] MEDS: ACETAMINOPHEN TAB 650MG DOSE (2X325MG) PO PRN (10:37)
[2023-08-10] MEDS: DARBEPOETIN 100MCG/0.5ML *DIALYSIS* SYRINGE IV SCH (11:29)
[2023-08-10 13:53] VITALS: BP 140/66; TEMP 97.5; O2SAT 96
[2023-08-10] MEDS: PANTOPRAZOLE 40MG TAB (PROTONIX) PO SCH (14:19)
[2023-08-10] MEDS: rOPINIRole 0.25 MG TAB(REQUIP) PO SCH (14:19)
[2023-08-10] MEDS: CARVedilol 12.5 MG TAB PO SCH (14:20)
[2023-08-10] MEDS: APIXABAN 5 MG TAB (ELIQUIS) PO SCH (14:20)
[2023-08-10] MEDS: TORSEMIDE 100 MG TAB PO SCH (14:20)
[2023-08-10] MEDS: CLOPIDOGREL 75 MG TAB PO SCH (14:20)
[2023-08-10 15:51] VITALS: BP 123/59; O2SAT 93
[2023-08-10] MEDS: CALCITRIOL 0.25 MCG CAP (S0169) PO SCH (15:56)
[2023-08-10] MEDS: PERCOCET 5MG/325MG TAB PO PRN (15:57)
[2023-08-10 19:34] VITALS: BP 121/58; TEMP 97.4; O2SAT 92
[2023-08-10] MEDS: DOCUSATE SODIUM 100MG CAPSULE PO SCH (20:22)
[2023-08-10] MEDS: FLUoxetine 20MG CAP PO SCH (20:22)
[2023-08-10] MEDS: ATORVASTATIN 20 MG TAB PO SCH (20:22)
[2023-08-10 22:21] VITALS: BP 128/71; TEMP 98.1; O2SAT 92
[2023-08-11 05:58] LABS: BASO % 0.6 % (0.0-1.0); EOS # 0.2 10^3/uL (0.0-0.5); EOS % 2.5 % (0.0-3.0); HEMATOCRIT 26.9 % (42.0-52.0); HEMOGLOBIN 8.7 g/dl (13.5-17.5); LYMPH # 0.7 10^3/uL (1.5-5.0); LYMPH % 9.6 % (24.0-44.0); MEAN CORPUSCULAR HEMOGLOBIN 30.3 pg (27.0-33.0); MEAN CORPUSCULAR HGB CONC 32.3 g/dl (32.0-36.5); MEAN CORPUSCULAR VOLUME 93.7 fl (80.0-96.0); MONO % 13.5 % (2.0-8.0); NEUTROPHILS # 5.2 10^3/uL (1.5-8.5); NEUTROPHILS % 73.4 % (36.0-66.0); PLATELET COUNT, AUTOMATED 220 10^3/uL (150-450); RED BLOOD COUNT 2.87 10^6/uL (4.30-6.10); WHITE BLOOD COUNT 7.1 10^3/uL (4.0-10.0)
[2023-08-11 06:00] VITALS: BP 125/67; TEMP 98.4; O2SAT 94
[2023-08-11 06:17] LABS: CALCIUM LEVEL 9.1 MG/DL (8.3-10.6); CREATININE FOR GFR 7.31 MG/DL (0.70-1.30); GLOMERULAR FILTRATION RATE 7.9 (>42); POTASSIUM SERUM 4.1 MMOL/L (3.5-5.1)
[2023-08-11 08:36] VITALS: BP 128/63
[2023-08-11 12:09] LABS: PSA TOTAL 1.5 ng/mL (0.0-4.0)
== END 2023-08-11 12:45 | disposition home or self-care (01) | DRG 689 ==
LOC: M ED 19:49 → M ED INP 08-10 00:41 → M PCU 08-10 03:47 → M MSPAV 08-10 22:24
PROVIDERS: ADMIT Internal Medicine; ATTEND Internal Medicine
DX: N39.0 Urinary tract infection, site not specified (principal); G93.41 Metabolic encephalopathy; N18.6 End stage renal disease; I12.0 Hypertensive chronic kidney disease with stage 5 chronic kidney disease or end stage renal disease; F17.210 Nicotine dependence, cigarettes, uncomplicated; E11.22 Type 2 diabetes mellitus with diabetic chronic kidney disease; E78.00 Pure hypercholesterolemia, unspecified; D63.1 Anemia in chronic kidney disease; F32.A Depression, unspecified; N40.1 Benign prostatic hyperplasia with lower urinary tract symptoms; I25.10 Atherosclerotic heart disease of native coronary artery without angina pectoris; G25.81 Restless legs syndrome; K21.9 Gastro-esophageal reflux disease without esophagitis; I48.91 Unspecified atrial fibrillation; Z79.01 Long term (current) use of anticoagulants; Z79.4 Long term (current) use of insulin; Z79.899 Other long term (current) drug therapy; Z91.018 Allergy to other foods; Z20.822 Contact with and (suspected) exposure to COVID-19; Z99.2 Dependence on renal dialysis

== ENCOUNTER 2023-11-12 13:32 | Inpatient (IN) | payer MEDICARE ==
[~2023-11-12] VITALS: Ht 175.3 cm; Wt 92.1 kg
[~2023-11-12 13:32] MED LIST changes: +MULTTAB61 PO; +TRES1INJ2 SC; +ZOLP5TAB PO
[2023-11-12] MEDS: ONDANSETRON 4MG 2ML VIAL IV ONE ×2 (15:05→17:08)
[2023-11-12 16:10] LABS: BASO # 0.1 10^3/uL (0.0-0.2); BASO % 0.8 % (0.0-1.0); EOS # 0.1 10^3/uL (0.0-0.5); EOS % 1.3 % (0.0-3.0); HEMATOCRIT 31.2 % (42.0-52.0); HEMOGLOBIN 10.1 g/dl (13.5-17.5); LYMPH # 0.5 10^3/uL (1.5-5.0); LYMPH % 7.5 % (24.0-44.0); MEAN CORPUSCULAR HEMOGLOBIN 29.4 pg (27.0-33.0); MEAN CORPUSCULAR HGB CONC 32.4 g/dl (32.0-36.5); MONO # 0.7 10^3/uL (0.0-0.8); MONO % 11.3 % (2.0-8.0); NEUTROPHILS # 4.8 10^3/uL (1.5-8.5); NEUTROPHILS % 78.8 % (36.0-66.0); PLATELET COUNT, AUTOMATED 214 10^3/uL (150-450); RED BLOOD COUNT 3.43 10^6/uL (4.30-6.10)
[2023-11-12] MEDS ORDERED: ISOVUE-370 76% 100ML VIAL As Ordered ONE (16:24)
[2023-11-12 16:40] LABS: BILIRUBIN,DIRECT 0.4 MG/DL (<0.4); BILIRUBIN,TOTAL 0.6 MG/DL (0.3-1.2); CALCIUM LEVEL 9.6 MG/DL (8.3-10.6); CREATININE FOR GFR 6.18 MG/DL (0.70-1.30); GLOMERULAR FILTRATION RATE 9.6 (>42); TOTAL PROTEIN 6.5 G/DL (5.7-8.2)
[2023-11-12] MEDS: METOCLOPRAMIDE INJ 10MG/2ML VIAL IV ONE (18:05)
[2023-11-12] MEDS: CARVedilol 12.5 MG TAB PO ONE (19:47)
[2023-11-12] MEDS: PROMETHAZINE 25MG/ML 1ML VIAL IM ONE (19:57)
[2023-11-12 20:05] LABS: MAGNESIUM LEVEL 2.3 MG/DL (1.8-2.4)
[2023-11-12] MEDS ORDERED: DEXTROSE 50% 50ML SYRINGE IV PRN (20:30)
[2023-11-12] MEDS ORDERED: GLUCOSE 4 GM CHEW PO PRN (20:30)
[2023-11-12] MEDS ORDERED: GLUCAGON INJ 1MG VIAL SC PRN (20:30)
[2023-11-12] MEDS ORDERED: OXYC1TAB23 PO (20:32)
[2023-11-12] MEDS ORDERED: FINA5TAB2 PO (20:32)
[2023-11-12] MEDS ORDERED: CLOP75TA99 PO (20:32)
[2023-11-12] MEDS ORDERED: ROPI1TAB73 PO (20:32)
[2023-11-12] MEDS ORDERED: HOME MED LIST COMPLETE! XX SCH (20:35)
[2023-11-12 21:05] LABS: CK-MB VALUE MASS 2.6 NG/ML (<3.6)
[2023-11-12] MEDS ORDERED: ALBUTEROL 90 MCG/ACT 8GM HFA INHALER INH PRN (21:05)
[2023-11-12 21:07] LABS: MB/CK RELATIVE INDEX 1.05 (< OR =4)
[2023-11-12] MEDS: FLUoxetine 20MG CAP PO SCH (21:51)
[2023-11-12] MEDS: DOCUSATE SODIUM 100MG CAPSULE PO SCH (21:52)
[2023-11-12] MEDS: FINASTERIDE 5MG TAB PO SCH (21:52)
[2023-11-12] MEDS: APIXABAN 5 MG TAB (ELIQUIS) PO SCH (21:52)
[2023-11-12] MEDS: ATORVASTATIN 20 MG TAB PO SCH (21:53)
[2023-11-12] MEDS: PANTOPRAZOLE 40MG VIAL IV SCH (22:26)
[2023-11-12] MEDS: rOPINIRole 1MG TAB PO SCH (22:26)
[2023-11-12] MEDS: TAMSULOSIN 0.4 MG CAP PO SCH (22:27)
[2023-11-12] MEDS: PERCOCET 5MG/325MG TAB PO SCH (22:27)
[2023-11-12] MEDS: NS 1,000 ML IV SCH (22:28)
[2023-11-12 23:56] VITALS: BP 134/91; TEMP 97.2; O2SAT 92
[2023-11-13] MEDS: INSULIN LISPRO (NovoLOG) PER UNIT SC SCH
[2023-11-13] MEDS: METOCLOPRAMIDE INJ 10MG/2ML VIAL IV SCH (00:31)
[2023-11-13] MEDS: RAMELTEON 8 MG TAB (ROZEREM) PO PRN (01:36)
[2023-11-13] MEDS: ACETAMINOPHEN TAB 650MG DOSE (2X325MG) PO PRN (01:36)
[2023-11-13] MEDS: methocarbamoL 500 MG TAB PO PRN (02:17)
[2023-11-13 04:05] VITALS: BP 121/81; TEMP 97.4; O2SAT 96
[2023-11-13] MEDS: diphenhydrAMINE 50MG/ML VIAL IM ONE (05:11)
[2023-11-13] MEDS ORDERED: HEPARIN 1,000UNITS/ML 10ML VIAL (FOR RADIOLOGY & DIALYSIS ONLY) XX SCH (05:30)
[2023-11-13] MEDS ORDERED: HEPARIN 1,000UNITS/ML 10ML VIAL (FOR RADIOLOGY & DIALYSIS ONLY) IV PRN (05:30)
[2023-11-13] MEDS ORDERED: SODIUM CHLORIDE 0.9% 1000ML IV PRN (05:30)
[2023-11-13] MEDS ORDERED: LIDOCAINE 1% SDV 5ML VIAL SC PRN (05:30)
[2023-11-13 06:29] LABS: HEMATOCRIT 29.6 % (42.0-52.0); HEMOGLOBIN 9.7 g/dl (13.5-17.5); MEAN CORPUSCULAR HEMOGLOBIN 29.4 pg (27.0-33.0); MEAN CORPUSCULAR HGB CONC 32.8 g/dl (32.0-36.5); MEAN CORPUSCULAR VOLUME 89.7 fl (80.0-96.0); PLATELET COUNT, AUTOMATED 215 10^3/uL (150-450); WHITE BLOOD COUNT 11.4 10^3/uL (4.0-10.0)
[2023-11-13] MEDS: METOCLOPRAMIDE 5 MG TAB PO SCH (06:37)
[2023-11-13 06:39] LABS: INR 3.01; PARTIAL THROMBOPLASTIN TIME 49.9 SECONDS (24.8-34.2); PROTHROMBIN TIME 30.1 SECONDS (12.5-14.5)
[2023-11-13 07:06] LABS: PROCALCITONIN 0.48 ng/ml
[2023-11-13 07:11] LABS: ALBUMIN 3.1 G/DL (3.2-5.2); ALKALINE PHOSPHATASE 138 U/L (46-116); ALT/SGPT 356 U/L (7.0-40); AST/SGOT 450 U/L (<34); BILIRUBIN,TOTAL 1.6 MG/DL (0.3-1.2); BLOOD UREA NITROGEN 49 MG/DL (9-23); CALCIUM LEVEL 9.3 MG/DL (8.3-10.6); CARBON DIOXIDE LEVEL 22 MMOL/L (20-31); CHLORIDE LEVEL 93 MMOL/L (98-107); CREATININE FOR GFR 7.15 MG/DL (0.70-1.30); GLOMERULAR FILTRATION RATE 8.1 (>42); GLUCOSE, FASTING 88 MG/DL (74-106); MAGNESIUM LEVEL 2.4 MG/DL (1.8-2.4); PHOSPHORUS LEVEL 6.4 MG/DL (2.4-5.1); POTASSIUM SERUM 4.5 MMOL/L (3.5-5.1); SODIUM LEVEL 130 MMOL/L (136-145); TOTAL PROTEIN 6.5 G/DL (5.7-8.2)
[2023-11-13 07:40] VITALS: BP 130/85; TEMP 96.9; O2SAT 96
[2023-11-13] MEDS: CARVedilol 12.5 MG TAB PO SCH (08:56)
[2023-11-13] MEDS ORDERED: BISACODYL 10MG SUPP PR PRN (09:55)
[2023-11-13 10:24] LABS: HEPATITIS B SURFACE ANTIGEN NEGATIVE (NEGATIVE)
[2023-11-13 13:56] VITALS: BP 129/69; TEMP 97.5; O2SAT 90
[2023-11-13] MEDS: PERCOCET 5MG/325MG TAB PO PRN (14:04)
[2023-11-13] MEDS: NICOTINE 21MG/24HR 1 EA TRANSDERMAL TD SCH (14:04)
[2023-11-13] MEDS: diphenhydrAMINE 25MG CAP PO SCH (14:04)
[2023-11-13 16:00] VITALS: BP 115/72; TEMP 97.3; O2SAT 93
[2023-11-13 19:52] VITALS: BP 145/75; TEMP 97.2; O2SAT 97
[2023-11-13] MEDS: CLOPIDOGREL 75 MG TAB PO SCH (20:50)
[2023-11-13 23:29] VITALS: BP 131/68; TEMP 97.6; O2SAT 94
[2023-11-14] VITALS (9 sets, daily range): BP systolic 110–142; BP diastolic 58–81; TEMP 96.7–97.6; O2SAT 93–97
[2023-11-14] MEDS: metroNIDAZOLE (FLAGYL) 500MG TABLET PO SCH (06:19)
[2023-11-14] MEDS: cefTRIAXone SOD 2 GM in D5W MINI-BAG PLUS 50 ML IV SCH (06:19)
[2023-11-14 07:38] LABS: BASO % 0.3 % (0.0-1.0); EOS # 0.2 10^3/uL (0.0-0.5); EOS % 1.3 % (0.0-3.0); HEMATOCRIT 28.9 % (42.0-52.0); HEMOGLOBIN 9.4 g/dl (13.5-17.5); LYMPH # 0.6 10^3/uL (1.5-5.0); LYMPH % 4.3 % (24.0-44.0); MEAN CORPUSCULAR HEMOGLOBIN 29.9 pg (27.0-33.0); MEAN CORPUSCULAR HGB CONC 32.5 g/dl (32.0-36.5); MONO # 0.8 10^3/uL (0.0-0.8); MONO % 6.2 % (2.0-8.0); NEUTROPHILS # 11.8 10^3/uL (1.5-8.5); NEUTROPHILS % 87.5 % (36.0-66.0); PLATELET COUNT, AUTOMATED 172 10^3/uL (150-450); RED BLOOD COUNT 3.14 10^6/uL (4.30-6.10); WHITE BLOOD COUNT 13.5 10^3/uL (4.0-10.0)
[2023-11-14 08:23] LABS: MAGNESIUM LEVEL 2.3 MG/DL (1.8-2.4)
[2023-11-14 08:39] LABS: ALBUMIN 2.8 G/DL (3.2-5.2); BILIRUBIN,TOTAL 1.9 MG/DL (0.3-1.2); CALCIUM LEVEL 9.5 MG/DL (8.3-10.6); CREATININE FOR GFR 5.31 MG/DL (0.70-1.30); GLOMERULAR FILTRATION RATE 11.5 (>42); POTASSIUM SERUM 4.8 MMOL/L (3.5-5.1); TOTAL PROTEIN 6.3 G/DL (5.7-8.2)
[2023-11-14] MEDS: LORazepam 2 MG/ML 1ML VIAL IV STA ×2 (11:04→11:34)
[2023-11-14] MEDS: OLANZapine INTRAMUSCULAR 10MG VIAL IM STA (12:51)
[2023-11-14 13:17] LABS: HEPATITIS B SURFACE ANTIGEN NEGATIVE (NEGATIVE)
[2023-11-14 13:39] LABS: HEPATITIS B CORE ANTIBODY IGM NEGATIVE (NEGATIVE); HEPATITIS C VIRUS ABY INDEX 0.02 INDEX (<0.8)
[2023-11-14 15:30] LABS: PROTHROMBIN TIME 60.4 SECONDS (12.5-14.5)
[2023-11-14 15:40] LABS: INR 7.44
[2023-11-14 17:59] LABS: PROTHROMBIN TIME 55.7 SECONDS (12.5-14.5)
[2023-11-14 18:32] LABS: INR 6.7
[2023-11-14] MEDS ORDERED: PHYTONADIONE 2.5 MG **1/2 TAB PO ONE (19:00)
[2023-11-14] MEDS: PHYTONADIONE 5 MG TAB PO ONE (20:11)
== END 2023-11-14 20:25 | disposition short-term general hospital (02) | DRG 444 ==
LOC: EDBD 13:32 → M ED 13:32 → M ED INP 19:48 → M PCU 23:51
PROVIDERS: ADMIT Family Medicine; ATTEND Student in an Organized Health Care Education/Training Program
PROC: 5A1D70Z Performance of Urinary Filtration, Intermittent, Less than 6 Hours Per Day (ICD-10-PCS; principal; 2023-11-13)
DX: K80.00 Calculus of gallbladder with acute cholecystitis without obstruction (principal); N18.6 End stage renal disease; I13.2 Hypertensive heart and chronic kidney disease with heart failure and with stage 5 chronic kidney disease, or end stage renal disease; E87.1 Hypo-osmolality and hyponatremia; B17.9 Acute viral hepatitis, unspecified; R18.8 Other ascites; G47.33 Obstructive sleep apnea (adult) (pediatric); E11.22 Type 2 diabetes mellitus with diabetic chronic kidney disease; Z99.2 Dependence on renal dialysis; I48.91 Unspecified atrial fibrillation; I25.10 Atherosclerotic heart disease of native coronary artery without angina pectoris; K72.90 Hepatic failure, unspecified without coma; G89.29 Other chronic pain; K74.60 Unspecified cirrhosis of liver; M54.50 Low back pain, unspecified; R94.5 Abnormal results of liver function studies; E78.00 Pure hypercholesterolemia, unspecified; F41.9 Anxiety disorder, unspecified; F32.A Depression, unspecified; K21.9 Gastro-esophageal reflux disease without esophagitis; I50.9 Heart failure, unspecified; N40.1 Benign prostatic hyperplasia with lower urinary tract symptoms; R33.9 Retention of urine, unspecified; G25.81 Restless legs syndrome; D63.1 Anemia in chronic kidney disease; Z91.018 Allergy to other foods; Z79.01 Long term (current) use of anticoagulants; Z79.4 Long term (current) use of insulin; Z79.02 Long term (current) use of antithrombotics/antiplatelets; Z79.899 Other long term (current) drug therapy; Z79.891 Long term (current) use of opiate analgesic